=== PATIENT | female | born 1980 | race Caucasian/White ===

== ENCOUNTER 2021-02-12 22:11 | Emergency (ER) | payer MEDICARE ==
[~2021-02-12] VITALS: Ht 147.3 cm; Wt 93.4 kg
[2021-02-12 22:15] VITALS: BP 142/94
[2021-02-12] MEDS ORDERED: ZOLOFT100 MG PO (22:41)
[2021-02-12] MEDS ORDERED: ABILIFY 2 MG2 M1 PO (22:41)
[2021-02-12] MEDS ORDERED: NORCO 10-325 T1 EACH PO (22:42)
[2021-02-12] MEDS ORDERED: LORATIDINE 10 M10 M1 PO (22:42)
[2021-02-12 22:43] LABS: ABSOLUTE BASOPHILS 0.1 thou/uL (0.0-0.2); ABSOLUTE EOSINOPHILS 0.2 thou/uL (0.0-0.7); ABSOLUTE LYMPHOCYTES 3.4 thou/uL (0.8-5.3); ABSOLUTE MONOCYTES 0.5 thou/uL (0.0-1.2); BASOPHILS 0.9 %; EOSINOPHILS 1.9 %; HEMATOCRIT 44.2 % (37.0-47.0); HEMOGLOBIN 15.2 gm/dL (12.0-15.0); LYMPHOCYTES 41.6 %; MCH 31.5 pg (26.0-34.0); MCHC 34.3 g/dL (28.0-37.0); MCV 91.7 fL (80.0-100.0); MONOCYTES 5.9 %; MPV 6.4 fl. (7.2-11.1); NUCLEATED RBCS 0 /100WBC; PLATELET COUNT* 451 thou/uL (150-400); POLYS 49.7 %; RBC 4.82 mil/uL (4.20-5.00); RDW-CV 12.9 % (10.5-14.5); WBC 8.1 thou/uL (4.0-11.0)
[2021-02-12 22:50] LABS: CALCIUM 8.9 mg/dL (8.5-10.1); CREATININE 0.9 mg/dL (0.6-1.3); POTASSIUM 3.9 mmol/L (3.5-5.1)
[2021-02-12 22:54] LABS: ALBUMIN 4.2 g/dL (3.4-5.0); TOTAL BILIRUBIN 0.2 mg/dL (<0.1-1.0); TOTAL PROTEIN 9.3 g/dL (6.4-8.2)
[2021-02-13 00:29] LABS: URINE BILIRUBIN NEGATIVE (Negative); URINE BLOOD NEGATIVE (Negative); URINE CLARITY CLEAR; URINE COLOR YELLOW; URINE GLUCOSE-RANDOM NEGATIVE (Negative); URINE KETONES NEGATIVE (Negative); URINE LEUKOCYTES-REFLEX NEGATIVE (Negative); URINE NITRITE-REFLEX NEGATIVE (Negative); URINE PROTEIN NEGATIVE (Negative); URINE SPECIFIC GRAVITY >= 1.030 (1.005-1.030); URINE UROBILINOGEN 0.2 E.U./dl (0.2-1.0)
[2021-02-13 00:35] LABS: AMP/METHAMP Negative (Negative); BARBITURATES Negative (Negative); BENZODIAZEPINES Negative (Negative); COCAINE Negative (Negative); METHADONE Negative (Negative); OPIATES POSITIVE (Negative); PCP Negative (Negative); THC Negative (Negative)
[2021-02-13] MEDS ORDERED: PERCOCET 7.5-31 EAC1 PO ×2 (00:43→01:44)
[2021-02-13] MEDS ORDERED: ZOFRAN ODT4 MG PO ×2 (00:43→01:44)
[2021-02-13 01:55] VITALS: BP 130/76
--- NOTE | 2021-02-13 12:22 | EKG ---
[place] [address] ELECTROCARDIOGRAM REPORT Name: DAY ECHEVARRIA Room: [facility]#: [id number] Admission: 02/12/21 Attend Phys: Discharge: 02/13/21 Date of : 80 Date of Service: 02/12/212223 Report #: [id number] THIS REPORT FOR: //name// [facility] ED Test Date: 2021-02-12 Test Time: 22:24:05 Pat Name: DAY ECHEVARRIA Department: Room: Gender: F Hse Coordinator: SILVIO : 1980 Requested By: Sharonda Mccarty Order Number: [id number] Marsha MD: Jovan Verma Measurements Intervals [place] Rate: 102 P: 47 NM: 139 QRS: -156 QRSD: 149 T: 50 QT: 372 QTc: 485 Interpretive Statements Sinus tachycardia RBBB and LPFB Probable inferior infarct No previous ECG available for comparison Electronically Signed On 02-13-2021 12:22:29 CDT by Jovan Verma [email or web address] <ELECTRONICALLY SIGNED> By: Jovan Verma MD, [facility] 02/13/21 1222 23 Jovan Verma MD, [facility] /EPI
== END 2021-02-13 01:55 | disposition home or self-care (01) ==
LOC: M.ERS 22:11 → M.TBA-ER 02-13 00:31 → M.ERS 02-13 01:55
PROVIDERS: Emergency Medicine
DX: N20.1 Calculus of ureter (principal); Z88.1 Allergy status to other antibiotic agents; Z88.0 Allergy status to penicillin; Z88.2 Allergy status to sulfonamides; Z86.14 Personal history of Methicillin resistant Staphylococcus aureus infection; Z90.49 Acquired absence of other specified parts of digestive tract; Z98.890 Other specified postprocedural states; Z79.899 Other long term (current) drug therapy